=== PATIENT | female | born 1950 | race Hispanic/Latino ===

== ENCOUNTER → 2018-04-18 | Outpatient (CLI) | payer OTHER ==
[~2018-04-18] MED LIST: REGADENOSON 0.4 MG/5 ML PF SYG IVP SCH
== END | disposition home or self-care (01) ==
LOC: SHCH 08:33
PROVIDERS: ATTEND Internal Medicine Cardiovascular Disease
DX: I10 Essential (primary) hypertension (principal); R06.00 Dyspnea, unspecified; R07.89 Other chest pain
CPT/HCPCS: 78452; 93017; 96374; A9500 ×2; J2785

== ENCOUNTER 2018-10-04 19:58 | Emergency (ER) | payer OTHER ==
[2018-10-04] MEDS ORDERED: IBUPROFEN 400 MG TABLET ONE (20:35)
== END 2018-10-04 21:00 | disposition home or self-care (01) ==
LOC: EDH 19:58
DX: S82.65XA Nondisplaced fracture of lateral malleolus of left fibula, initial encounter for closed fracture (principal); I12.9 Hypertensive chronic kidney disease with stage 1 through stage 4 chronic kidney disease, or unspecified chronic kidney disease; E11.22 Type 2 diabetes mellitus with diabetic chronic kidney disease; N18.9 Chronic kidney disease, unspecified; E78.5 Hyperlipidemia, unspecified; Z90.49 Acquired absence of other specified parts of digestive tract; Z88.0 Allergy status to penicillin; W22.8XXA Striking against or struck by other objects, initial encounter; Y93.89 Activity, other specified; Y92.89 Other specified places as the place of occurrence of the external cause; Y99.8 Other external cause status
CPT/HCPCS: 73610

== ENCOUNTER → 2020-01-23 | Outpatient (CLI) | payer OTHER | END | disposition home or self-care (01) | DX: Z12.31 Encounter for screening mammogram for malignant neoplasm of breast (principal) ==

== ENCOUNTER 2021-07-05 08:36 | Emergency (ER) | payer OTHER ==
[~2021-07-05] VITALS: Ht 160 cm; Wt 84.8 kg
[~2021-07-05 08:36] MED LIST changes: +AEC81 PO; +CLON0.1T PO; +GLIP10TA9 PO; +HYDR-4153 PO; +LEVO25TA54 PO; +MULT-1258 PO; +PRAV40TA3 PO; -REGADENOSON 0.4 MG/5 ML PF SYG IVP SCH; +REPA2TAB8 PO; +TORS20TA4 PO; +TRAZ-187 PO
[2021-07-05 09:03] LABS: BASOPHILS % (AUTO) 0.3 % (0.0-5.0); EOSINOPHILS % (AUTO) 0.4 % (0.0-8.0); HEMATOCRIT 37.8 % (36-48); MEAN CORPUSCULAR HEMOGLOBIN 30.7 pg (27.0-33.0); MEAN CORPUSCULAR HGB CONC 32.3 g/dL (32.0-36.0); MONOCYTES % (AUTO) 6.7 % (3.0-13.0); NEUTROPHILS % (AUTO) 83.3 % (40.0-77.0); PLATELET COUNT (AUTO) 206 K/uL (130-400); RED BLOOD CELL COUNT(AUTO) 3.98 MIL/uL (4.00-5.50); RED CELL DISTRIBUTION WIDTH 12.6 % (11.0-15.5); WHITE BLOOD COUNT (AUTO) 13.6 K/uL (4.8-10.8)
[2021-07-05 09:10] LABS: BILIRUBIN,URINE NEGATIVE (NEGATIVE); COLOR,URINE YELLOW (YELLOW); GLUCOSE, URINE (UA) 100 mg/dL (NEGATIVE); KETONES,URINE 5 mg/dL (NEGATIVE); LEUKOCYTE ESTERASE ,URINE TRACE (NEGATIVE); NITRATE,URINE NEGATIVE (NEGATIVE); OCCULT BLOOD,URINE SMALL (NEGATIVE); PROTEIN,URINE >=300 mg/dL (NEGATIVE); UROBILINOGEN,URINE 0.2 mg/dL (0.2-1.0)
[2021-07-05 09:11] LABS: APPEARANCE,URINE SLIGHTLY CLOUDY (CLEAR)
[2021-07-05] MEDS ORDERED: ONDANSETRON 4MG INJ IVP SCH (09:30)
[2021-07-05] MEDS ORDERED: MORPHINE 4 MG SYG IV SCH (09:30)
[2021-07-05 09:39] LABS: ALBUMIN 3.8 g/dL (3.5-5.0); BILIRUBIN,TOTAL 0.4 mg/dL (0.2-1.0); CREATININE 6.4 mg/dL (0.5-1.5); POTASSIUM 3.4 mmol/L (3.5-5.1); TOTAL PROTEIN, SERUM 7.8 g/dL (6.0-8.3)
[2021-07-05 09:42] LABS: BACTERIA,URINE Few /HPF (None Seen); RBC,URINE 0-1 /HPF (0-1); WBC,URINE 0-1 /HPF (0-1)
[2021-07-05] MEDS ORDERED: KETOROLAC 15MG/ML VIAL (15MG/ML) IV SCH (10:30)
[2021-07-05] MEDS ORDERED: ACET1TAB25 PO (10:52)
[2021-07-05] MEDS ORDERED: TAMS-1 PO (10:52)
[2021-07-05 11:43] VITALS: BP 109/81
== END 2021-07-05 11:44 | disposition home or self-care (01) ==
LOC: EDH 08:36
DX: N13.2 Hydronephrosis with renal and ureteral calculous obstruction (principal); E11.9 Type 2 diabetes mellitus without complications; E78.00 Pure hypercholesterolemia, unspecified; I10 Essential (primary) hypertension; Z88.0 Allergy status to penicillin; Z79.1 Long term (current) use of non-steroidal anti-inflammatories (NSAID); Z79.82 Long term (current) use of aspirin; Z79.84 Long term (current) use of oral hypoglycemic drugs; Z79.899 Other long term (current) drug therapy; Z90.49 Acquired absence of other specified parts of digestive tract
CPT/HCPCS: 36415; 74176; 80053; 81001; 84484; 85025; 96374; 96375; 99284; J1885; J2270; J2405

== ENCOUNTER 2021-07-23 10:17 | Emergency (ER) | payer OTHER ==
[~2021-07-23] VITALS: Ht 152.4 cm; Wt 83.0 kg
[~2021-07-23 10:17] MED LIST changes: +ACET1TAB25 PO; +TAMS-1 PO
[2021-07-23 11:36] LABS: BASOPHILS % (AUTO) 0.8 % (0.0-5.0); EOSINOPHILS % (AUTO) 2.2 % (0.0-8.0); HEMATOCRIT 31.7 % (36-48); LYMPHOCYTES % (AUTO) 20.8 % (21.0-51.0); MEAN CORPUSCULAR HEMOGLOBIN 30.3 pg (27.0-33.0); MEAN CORPUSCULAR HGB CONC 32.5 g/dL (32.0-36.0); MEAN CORPUSCULAR VOLUME 93.2 fL (79-99); MONOCYTES % (AUTO) 12.5 % (3.0-13.0); NEUTROPHILS % (AUTO) 63.3 % (40.0-77.0); PLATELET COUNT (AUTO) 311 K/uL (130-400); RED CELL DISTRIBUTION WIDTH 12.8 % (11.0-15.5); WHITE BLOOD COUNT (AUTO) 7.4 K/uL (4.8-10.8)
[2021-07-23 11:50] LABS: ALBUMIN 3.3 g/dL (3.5-5.0); BILIRUBIN,TOTAL 0.3 mg/dL (0.2-1.0); CREATININE 4.5 mg/dL (0.5-1.5); TOTAL PROTEIN, SERUM 6.8 g/dL (6.0-8.3)
[2021-07-23 11:51] LABS: POTASSIUM 2.9 mmol/L (3.5-5.1)
[2021-07-23 12:15] LABS: APPEARANCE,URINE Clear (CLEAR); BILIRUBIN,URINE Negative (NEGATIVE); COLOR,URINE Yellow (YELLOW); GLUCOSE, URINE (UA) Negative (NEGATIVE); KETONES,URINE Negative (NEGATIVE); LEUKOCYTE ESTERASE ,URINE Trace (NEGATIVE); NITRATE,URINE Negative (NEGATIVE); OCCULT BLOOD,URINE Negative (NEGATIVE); PH,URINE 6.5 (5.0-8.0); PROTEIN,URINE 300 mg/dL (NEGATIVE); UROBILINOGEN,URINE 0.2 mg/dL (0.2-1.0)
[2021-07-23 12:26] LABS: BACTERIA,URINE Few /HPF (None Seen); RBC,URINE None Seen /HPF (0-1); WBC,URINE 0-1 /HPF (0-1)
[2021-07-23] MEDS ORDERED: KCL 20 MEQ ERTAB PO ONE (12:30)
[2021-07-23] MEDS ORDERED: BISACODYL 10 MG SUPP.RECT RC ONE (14:30)
[2021-07-23] MEDS ORDERED: KETOROLAC 15MG/ML VIAL (15MG/ML) IV ONE (15:30)
[2021-07-23] MEDS ORDERED: KETOROLAC 15MG/ML VIAL (15MG/ML) ONE (15:49)
[2021-07-23] MEDS ORDERED: GABA-529 PO (18:13)
[2021-07-23 18:22] VITALS: BP 136/89
== END 2021-07-23 18:56 | disposition home or self-care (01) ==
LOC: EDH 10:17
DX: K59.00 Constipation, unspecified (principal); R63.0 Anorexia; E11.9 Type 2 diabetes mellitus without complications; E78.00 Pure hypercholesterolemia, unspecified; I10 Essential (primary) hypertension; Z88.0 Allergy status to penicillin; Z79.899 Other long term (current) drug therapy; Z79.84 Long term (current) use of oral hypoglycemic drugs; Z79.82 Long term (current) use of aspirin; Z90.49 Acquired absence of other specified parts of digestive tract
CPT/HCPCS: 36415; 74176; 80053; 81001; 82550; 83690; 85025; 96374; 99284; J1885; 96372